=== PATIENT | female | born 1960 | race Caucasian/White ===

== ENCOUNTER 2018-06-13 14:33 | Emergency (ER) | payer SELFPAY ==
[2018-06-13 15:13] VITALS: BP 170/78; PULSE 92; RESP 18; TEMP 97.9; O2SAT 95
--- NOTE | 2018-06-13 15:20 | C.PDOC ---
History Of Present Illness 57 y/o female, with history of diabetes and CAD with stent, comes in to ED complaining of cough and back pain for the past 2 days. States that the back pain worsens with cough and when shes walking. Otherwise she denies fever, cough, chest pain, or SOB. Patient admits to sick contact; her son is sick with cough for 4 days. <Theodore Daley - Last Filed: 06/15/18 10:16> <Barney Renee - Last Filed: 06/13/18 17:40> History Per: Patient History/Exam Limitations: no limitations Onset/Duration Of Symptoms: Days Current Symptoms Are (Timing): Still Present <Theodore Daley - Last Filed: 06/15/18 10:16> Time Seen by Provider: 06/13/18 15:03 Chief Complaint (Nursing): Cough, Cold, Congestion Past Medical History Vital Signs: Last Vital Signs Temp 97.9 F 06/13/18 14:55 Pulse 92 H 06/13/18 14:55 Resp 18 06/13/18 14:55 BP 170/78 H 06/13/18 14:55 Pulse Ox 95 06/13/18 15:28 <Barney Renee - Last Filed: 06/13/18 17:40> Reviewed: Historical Data, Nursing Documentation, Vital Signs Vital Signs: Last Vital Signs Temp 97.9 F 06/13/18 14:55 Pulse 92 H 06/13/18 14:55 Resp 18 06/13/18 14:55 BP 170/78 H 06/13/18 14:55 Pulse Ox 95 06/13/18 14:55 - Medical History PMH: HTN Family History: States: No Known Family Hx - Social History Hx Alcohol Use: No Hx Substance Use: No - Immunization History Hx Tetanus Toxoid Vaccination: No Hx Influenza Vaccination: No Hx Pneumococcal Vaccination: No <Theodore Daley - Last Filed: 06/15/18 10:16> Review Of Systems Constitutional: Negative for: Fever Cardiovascular: Negative for: Chest Pain Respiratory: Positive for: Cough. Negative for: Shortness of Breath Musculoskeletal: Positive for: Back Pain <Theodore Daley - Last Filed: 06/15/18 10:16> Physical Exam - Physical Exam Appears: Non-toxic, No Acute Distress Skin: Warm, Dry Head: Atraumatic, Normacephalic Eye(s): bilateral: Normal Inspection Ear(s): Bilateral: Normal Oral Mucosa: Moist Throat: Normal, No Erythema, No Exudate, Other (Uvula midline) Neck: Supple Chest: Symmetrical Cardiovascular: Rhythm Regular, No Murmur Respiratory: Normal Breath Sounds, No Rales, No Rhonchi, No Wheezing Gastrointestinal/Abdominal: Soft, No Tenderness Extremity: No Pedal Edema Extremity: Bilateral: Atraumatic, Normal Color And Temperature, Normal ROM Neurological/Psych: Oriented x3, Normal Speech <Theodore Daley - Last Filed: 06/15/18 10:16> ED Course And Treatment O2 Sat by Pulse Oximetry: 95 (RA) Pulse Ox Interpretation: Normal <Theodore Daley - Last Filed: 06/15/18 10:16> Medical Decision Making Medical Decision Making: Impression: URI r/o pneumonia Plan: --Chest X-Ray --Motrin 600 mg PO <Theodore Daley - Last Filed: 06/15/18 10:16> Disposition Discussed With : Theodore Daley - Disposition Disposition Time: 16:04 <Barney Renee - Last Filed: 06/13/18 17:40> <Theodore Daley - Last Filed: 06/15/18 10:16> - Disposition Disposition: HOME/ ROUTINE Condition: FAIR Additional Instructions: Please discharge patient home Please take motrin 1 tab PO Q6H PRN ( As needed) for back pain Please take tessalon pearls as needed for cough Please follow up with your primary care physician in 1-3 days; if you do not have a primary care physician, please follow up with [facility] in 1-3 days Please return to the hospital if symptoms worsens Please take care Prescriptions: Benzonatate [Tessalon Perles] 100 mg PO TID PRN #15 sgl PRN Reason: Cough Ibuprofen [Motrin] 600 mg PO Q6 PRN #30 tab PRN Reason: Pain, Moderate (4-7) Instructions: Low Back Pain (DC), Viral Upper Respiratory Infection, Adult (DC), Upper Respiratory Infection (ED) Forms: [employer] (Kuwaiti) - Clinical Impression Clinical Impression: Viral disease, Chronic back pain - Scribe Statement The provider has reviewed the documentation as recorded by the Mamieibe Leigh Kyle <Theodore Daley - Last Filed: 06/15/18 10:16>
--- NOTE | 2018-06-13 16:13 | RAD ---
HISTORY: back pain with cough COMPARISON: No prior. TECHNIQUE: Chest PA and lateral FINDINGS: LUNGS: Hyperinflation may be seen in the setting of COPD. No focal consolidation. Please note that chest x-ray has limited sensitivity for the detection of pulmonary masses. PLEURA: No significant pleural effusion identified. No definite pneumothorax . CARDIOVASCULAR: Heart size appears within normal limits. Ectatic aorta. No atherosclerotic calcification present. OSSEOUS STRUCTURES: Degenerative changes. VISUALIZED UPPER ABDOMEN: Unremarkable. OTHER FINDINGS: None. IMPRESSION: Hyperinflation may be seen in the setting of COPD. Cholecystectomy clips.
== END 2018-06-13 16:19 | disposition home or self-care (01) ==
LOC: C.ER 14:33
DX: G89.29 Other chronic pain (principal); M54.9 Dorsalgia, unspecified; B34.9 Viral infection, unspecified; E11.9 Type 2 diabetes mellitus without complications; I25.10 Atherosclerotic heart disease of native coronary artery without angina pectoris

== ENCOUNTER 2018-06-17 13:27 | Emergency (ER) | payer OTHER ==
[2018-06-17] MEDS ORDERED: MethylPREDNISolone 40 mg Vial IVP STA (14:03)
--- NOTE | 2018-06-17 14:05 | C.PDOC ---
History Of Present Illness 57 y/o F c PMHx asthma p/w dyspnea x 2 days. States similar to previous asthma exacerbations, associated with cough and midsternal chest tightness. Denies fever, vomiting, leg swelling, recent travel. Son at home with cough as well. Time Seen by Provider: 06/17/18 13:46 Chief Complaint (Nursing): Shortness Of Breath Past Medical History Vital Signs: Last Vital Signs Temp 97.5 F L 06/17/18 13:37 Pulse 104 H 06/17/18 13:37 Resp 18 06/17/18 13:37 BP 111/74 06/17/18 13:37 Pulse Ox 97 06/17/18 13:37 - Medical History PMH: HTN Family History: States: No Known Family Hx - Social History Hx Alcohol Use: No Hx Substance Use: No - Immunization History Hx Tetanus Toxoid Vaccination: No Hx Influenza Vaccination: No Hx Pneumococcal Vaccination: No Review Of Systems Except As Marked, All Systems Reviewed And Found Negative. Constitutional: Negative for: Fever Gastrointestinal: Negative for: Vomiting Physical Exam - Physical Exam Additional Physical Exam Comments: Gen: NAD Head: NC/AT Eyes: PERRL ENT: MMM Neck: Supple Chest: No tenderness CV: Regular rate Lungs: Wheezing b/l Abd: Soft, NT Back: No CVA tenderness Extremities: No swelling or tenderness Skin: No rash Neuro: Alert, no focal deficit ED Course And Treatment - Laboratory Results Result Diagrams: 06/17/18 14:19 06/17/18 14:19 O2 Sat by Pulse Oximetry: 97 Medical Decision Making Medical Decision Making: Impression: Asthma exacerbation, r/o pneumonia and influenza. Plan: Duonebs and steroids and reassess. FINDINGS: LUNGS: No active pulmonary disease. PLEURA: No significant pleural effusion identified. No pneumothorax apparent. CARDIOVASCULAR: Aortic atherosclerotic calcifications. Cardiomediastinal silhouette within normal limits. OSSEOUS STRUCTURES: Unchanged. VISUALIZED UPPER ABDOMEN: Normal. OTHER FINDINGS: None. IMPRESSION: No active disease. Patient in no distress. Breathing improved. Discharged home, f/u PMD, instructed to return to ED for worsening breathing. Disposition - Disposition Referrals: [facility] at [facility] [Outside] Disposition: HOME/ ROUTINE Disposition Time: 14:51 Condition: STABLE Prescriptions: Albuterol HFA [Ventolin HFA 90 mcg/actuation (8 g)] 2 puff IH Q4 #1 inhaler Prednisone [Deltasone] 3 tab PO DAILY #12 tablet Instructions: Asthma in Adults Forms: [facility] (Latvian) - Clinical Impression Clinical Impression: Asthma exacerbation
[2018-06-17] MEDS ORDERED: Albuterol-Ipratrop 3 mg / 0.5 (3 ml) UD ONE (14:09)
[2018-06-17] MEDS ORDERED: Albuterol-Ipratrop 3 mg / 0.5 (3 ml) UD IH SCH (14:15)
[2018-06-17 14:22] LABS: BASO % 0.3 % (0.0-2.0); EOS # 0.1 K/uL (0.0-0.7); EOS % 0.9 % (0.0-4.0); HEMOGLOBIN 13.6 g/dL (11.0-16.0); LYMPH # 1.7 K/uL (1.0-4.3); LYMPH % 19.1 % (20.0-40.0); MEAN CELL VOLUME 83.2 fL (81.0-99.0); MEAN CORPUSCULAR HEMOGLOBIN 28.4 pg (27.0-31.0); MEAN CORPUSCULAR HGB CONC 34.1 g/dL (33.0-37.0); MEAN PLATELET VOLUME 8.6 fL (7.2-11.7); MONO # 0.5 K/uL (0.0-0.8); MONO % 6.3 % (0.0-10.0); NEUT # 6.4 K/uL (1.8-7.0); NEUT % 73.4 % (50.0-75.0); RBC 4.78 Mil/uL (3.80-5.20); WHITE BLOOD COUNT 8.8 K/uL (4.8-10.8)
[2018-06-17 14:37] LABS: ALB/GLOB RATIO 1.5 (1.0-2.1); ALBUMIN 4.6 g/dL (3.5-5.0); ALT/SGPT 27 U/L (9-52); AST/SGOT 21 U/L (14-36); BLOOD UREA NITROGEN 17 mg/dL (7-17); CALCIUM 9.5 mg/dl (8.6-10.4); GFR NON-AFRICAN AMERICAN > 60
[2018-06-17 14:48] LABS: CK-MB 0.84 ng/mL (0.0-3.38)
--- NOTE | 2018-06-17 15:25 | RAD ---
Date of service: 06/17/2018 HISTORY: dyspnea COMPARISON: Chest radiograph dated 06/13/2018. TECHNIQUE: Chest PA and lateral FINDINGS: LUNGS: No active pulmonary disease. PLEURA: No significant pleural effusion identified. No pneumothorax apparent. CARDIOVASCULAR: Aortic atherosclerotic calcifications. Cardiomediastinal silhouette within normal limits. OSSEOUS STRUCTURES: Unchanged. VISUALIZED UPPER ABDOMEN: Normal. OTHER FINDINGS: None. IMPRESSION: No active disease.
[2018-06-17 15:42] VITALS: BP 100/66; PULSE 88; RESP 20; TEMP 97.6; O2SAT 96
== END 2018-06-17 15:42 | disposition home or self-care (01) ==
LOC: C.ER 13:27
DX: J45.901 Unspecified asthma with (acute) exacerbation (principal); I10 Essential (primary) hypertension; F17.210 Nicotine dependence, cigarettes, uncomplicated
CPT/HCPCS: 71046; 80053; 82550; 82553; 84484; 85025; 87804; 94150; 96374; 99284; J2920

== ENCOUNTER 2018-07-14 20:44 | Emergency (ER) | payer OTHER ==
[2018-07-14 21:02] VITALS: BP 152/93; PULSE 88; TEMP 98; O2SAT 98
[2018-07-14] MEDS ORDERED: Oxycodone/Acetaminophen 5/325 mg Tab PO STA (21:10)
--- NOTE | 2018-07-14 21:14 | C.PDOC ---
History Of Present Illness 58 y/o female presents to the ED complaining of right hand pain after doing a lot of house work yesterday. Patient admits to doing repetitive movements while cleaning and cooking. She denies any injury or fall. Otherwise patient denies focal weakness, numbness, or tingling. Time Seen by Provider: 07/14/18 21:02 Chief Complaint (Nursing): Finger,Hand,&Wrist History Per: Patient History/Exam Limitations: no limitations Onset/Duration Of Symptoms: Days (x2) Current Symptoms Are (Timing): Still Present Quality: "Pain" Exacerbating Factor(s): Movement Past Medical History Reviewed: Historical Data, Nursing Documentation, Vital Signs Vital Signs: Last Vital Signs Temp 98 F 07/14/18 20:56 Pulse 88 07/14/18 20:56 Resp 18 07/14/18 20:56 BP 152/93 H 07/14/18 20:56 Pulse Ox 98 07/14/18 20:56 - Medical History PMH: HTN Family History: States: Unknown Family Hx - Social History Hx Alcohol Use: No Hx Substance Use: No - Immunization History Hx Tetanus Toxoid Vaccination: No Hx Influenza Vaccination: No Hx Pneumococcal Vaccination: No Review Of Systems Except As Marked, All Systems Reviewed And Found Negative. Constitutional: Negative for: Fever Musculoskeletal: Positive for: Hand Pain Skin: Negative for: Rash, Lesions Neurological: Negative for: Weakness, Numbness Physical Exam - Physical Exam Appears: Well, Non-toxic, No Acute Distress Skin: Normal Color, Warm, Dry Head: Atraumatic, Normacephalic Eye(s): bilateral: Normal Inspection Neck: Normal ROM Chest: Symmetrical Respiratory: No Accessory Muscle Use, Other (Speaking in complete sentences) Extremity: Tenderness (over the radial aspect of right hand, near the 1st metacarpal bone area), Capillary Refill (< 2 sec), No Deformity, Other (+ Jessie test) Pulses: Left Radial: Normal, Right Radial: Normal Neurological/Psych: Oriented x3, Normal Motor, Normal Sensation ED Course And Treatment O2 Sat by Pulse Oximetry: 98 (RA) Pulse Ox Interpretation: Normal - Other Rad XR R Wrist X-Ray: Interpreted by Me, Viewed By Me Interpretation: (-) acute fracture or dislocation Progress Note: X-ray taken of right wrist. Based on exam findings, patient educated regarding diagnosis of De Quervain's Tendonitis. 1 tab of PO percocet given for pain control. Imaging reviewed and is negative for fracture. Thumb SPICA splint applied by ED CP, and checked by me. Patient counseled regarding course of discharge and follow up instructions. Reassessment Condition: Improved Disposition - Disposition Referrals: Herminio Antunez MD [Staff Provider] - Bharat Deleon MD [Staff Provider] - [facility] [Outside] [facility] [Outside] Disposition: HOME/ ROUTINE Disposition Time: 21:37 Condition: STABLE Additional Instructions: Follow up with PMD and Hand specialist within 2-3 days. Return to ED if feel worse. Prescriptions: traMADol/Acetaminophen [Ultracet 325 MG-37.5 MG] 1 tab PO Q6 PRN #20 tab PRN Reason: Pain Instructions: De Quervain's Tenosynovitis Forms: [facility] (Mongolian) Print Language: BELARUSIAN - Clinical Impression Clinical Impression: Tenosynovitis, de Quervain - PA / CORPORATE LAWYER / Resident Statement MD/DO has reviewed & agrees with the documentation as recorded. - Scribe Statement The provider has reviewed the documentation as recorded by the Scribdonovan Dolan All medical record entries made by the Arun were at my direction and personally dictated by me. I have reviewed the chart and agree that the record accurately reflects my personal performance of the history, physical exam, medical decision making, and the department course for this patient. I have also personally directed, reviewed, and agree with the discharge instructions and disposition.
[2018-07-14] MEDS ORDERED: Oxycodone/Acetaminophen 5/325 mg Tab ONE (21:22)
[2018-07-14 22:17] VITALS: RESP 20
--- NOTE | 2018-07-15 15:40 | RAD ---
Right wrist four views History: Pain and swelling. Comparison: None available. Findings: Narrowing of the radiocarpal joint space. Mild prominence of the scapholunate interval measuring up to 2 millimeters. Mild negative ulnar variance. Mild degenerative changes noted at the 1st carpometacarpal joint space. Punctate ossific density adjacent to the ulnar styloid. Impression: Narrowing of the radiocarpal joint space. Mild prominence of the scapholunate interval measuring up to 2 millimeters. Mild negative ulnar variance. Mild degenerative changes noted at the 1st carpometacarpal joint space. Punctate ossific density adjacent to the ulnar styloid. If pain persists, consider correlation with MRI.
== END 2018-07-14 22:16 | disposition home or self-care (01) ==
LOC: C.ER 20:44
DX: M65.4 Radial styloid tenosynovitis [de Quervain] (principal)